=== PATIENT | female | born 1985 | race Caucasian/White ===

== ENCOUNTER 2021-07-17 15:50 | Emergency (ER) | payer MEDICAID, OTHER ==
[~2021-07-17] VITALS: Ht 149.9 cm; Wt 47.2 kg
[2021-07-17 16:00] VITALS: BP 112/79
--- NOTE | 2021-07-17 16:08 | NUR ---
PT AMBULATED TO ER BED 1 WITH A STEADY GAIT.
--- NOTE | 2021-07-17 16:16 | NUR ---
DR. CM AT PT BEDSIDE FOR FURTHER EVALUATION.
[2021-07-17] MEDS ORDERED: ONDANSETRON 4 MG ODT PO ONE (16:20)
[2021-07-17] MEDS ORDERED: ACETAMINOPHEN EXTRA STRENGTH 500 MG TAB PO ONE (16:20)
[2021-07-17] MEDS ORDERED: ONDA-188 SL (16:21)
[2021-07-17] MEDS ORDERED: ACET-10509 PO (16:21)
--- NOTE | 2021-07-17 16:27 | NUR ---
35 Y/O FEMALE C/O DRY NON-PRODUCTIVE COUGH, SUBJECTIVE FEVER, CHILLS, HEADACHE, +N/A, LOWER ABD PAIN 7/10 DESCRIBES SHARP RADIATES TO LOWER BACK X 4 DAYS. DENIES PMH NKA
[2021-07-17 17:07] VITALS: BP 118/74
--- NOTE | 2021-07-17 17:07 | NUR ---
Patient discharged with v/s stable. Written and verbal after care instructions given FOR COVID 19 and explained. Patient alert, oriented and verbalized understanding of instructions. Ambulatory with steady gait. All questions addressed prior to discharge. ID band removed. Patient advised to follow up with PMD. Rx of TYNENOL AND ZOFRAN given. Patient educated on indication of medication including possible reaction and side effects. Opportunity to ask questions provided and answered.
== END 2021-07-17 17:07 | disposition home or self-care (01) ==
LOC: MED 15:50
DX: R42 Dizziness and giddiness (principal); R63.0 Anorexia; R11.0 Nausea; Z20.822 Contact with and (suspected) exposure to COVID-19
CPT/HCPCS: 81002; 81025; 99283; Q0162; U0003

== ENCOUNTER 2024-04-07 20:27 | Emergency (ER) | payer OTHER ==
[~2024-04-07] VITALS: Ht 152.4 cm; Wt 46.7 kg
[~2024-04-07 20:27] MED LIST: ACET500T99 PO; ONDA-188 SL
[2024-04-07 20:39] VITALS: BP 107/74; PULSE 78; RESP 16; TEMP 97.2; O2SAT 10
[2024-04-07] MEDS: BACITRACIN OINT 500 UNITS/GM PKT TP ONE (22:25)
[2024-04-07] MEDS ORDERED: LIDOCAINE MPF 1% 5 ML ONE (22:33)
[2024-04-07] MEDS: LIDOCAINE MPF 1% 10 MG/ML VIAL INJ ONE (23:18)
[2024-04-07] MEDS ORDERED: BACI-418 TP (23:27)
[2024-04-07 23:42] VITALS: BP 107/74; PULSE 78; RESP 16; TEMP 97.2; O2SAT 10
== END 2024-04-07 23:42 | disposition home or self-care (01) ==
LOC: MED 20:27
DX: S61.217A Laceration without foreign body of left little finger without damage to nail, initial encounter (principal); Z79.899 Other long term (current) drug therapy; Z98.890 Other specified postprocedural states; W45.8XXA Other foreign body or object entering through skin, initial encounter; Y93.89 Activity, other specified; Y92.89 Other specified places as the place of occurrence of the external cause; Y99.8 Other external cause status
CPT/HCPCS: 12001; 90471; 90715; 99283; J2003

== ENCOUNTER 2024-04-14 14:57 | Emergency (ER) | payer OTHER ==
[~2024-04-14] VITALS: Ht 149.9 cm; Wt 47.2 kg
[~2024-04-14 14:57] MED LIST changes: +BACI-418 TP
[2024-04-14 15:02] VITALS: BP 104/69; PULSE 79; RESP 18; TEMP 98.6; O2SAT 99
[2024-04-14] MEDS: BACITRACIN OINT 500 UNITS/GM PKT TP ONE (15:39)
== END 2024-04-14 15:33 | disposition home or self-care (01) ==
LOC: MED 14:57
DX: S61.217D Laceration without foreign body of left little finger without damage to nail, subsequent encounter (principal); Z48.02 Encounter for removal of sutures; Z79.899 Other long term (current) drug therapy; X58.XXXD Exposure to other specified factors, subsequent encounter
CPT/HCPCS: 99282